=== PATIENT | male | born 1985 | race Asian ===

== ENCOUNTER 2021-11-12 16:23 | Emergency (ER) | payer OTHER ==
[~2021-11-12] VITALS: Ht 170.2 cm; Wt 62.6 kg
[2021-11-12 17:12] LABS: PLATELET COUNT 220 K/uL (142-355)
[2021-11-12 17:15] LABS: POTASSIUM 3.5 mmol/L (3.6-5.2)
[2021-11-12 18:00] VITALS: BP 168/104; TEMP 97.3
== END 2021-11-12 18:00 | disposition home or self-care (01) ==
LOC: ED 16:23
PROVIDERS: Emergency Medicine
DX: I10 Essential (primary) hypertension (principal); Z91.14 Patient's other noncompliance with medication regimen; R51.9 Headache, unspecified; I51.7 Cardiomegaly
CPT/HCPCS: 36415; 80053; 80307; 84484; 85027; 93005; 96374; 99284; J3490

== ENCOUNTER 2022-04-21 13:08 | Emergency (ER) | payer OTHER ==
[~2022-04-21] VITALS: Ht 170.2 cm; Wt 65.8 kg
[2022-04-21 13:10] VITALS: TEMP 98
[2022-04-21 14:10] VITALS: BP 163/108
== END 2022-04-21 14:29 | disposition home or self-care (01) ==
LOC: ED 13:08
DX: I10 Essential (primary) hypertension (principal); Z91.14 Patient's other noncompliance with medication regimen; F17.210 Nicotine dependence, cigarettes, uncomplicated
CPT/HCPCS: 93005; 99282

== ENCOUNTER 2022-12-06 11:43 | Emergency (ER) | payer OTHER ==
[~2022-12-06] VITALS: Ht 170.2 cm; Wt 96.2 kg
[2022-12-06 12:37] LABS: PLATELET COUNT 258 K/uL (142-355); POTASSIUM 3.6 mmol/L (3.6-5.2)
[2022-12-06 16:13] VITALS: BP 150/94; TEMP 97.6
== END 2022-12-06 16:13 | disposition home or self-care (01) ==
LOC: ED 11:46
PROVIDERS: Emergency Medicine Emergency Medical Services
DX: I10 Essential (primary) hypertension (principal); Z91.14 Patient's other noncompliance with medication regimen; F17.210 Nicotine dependence, cigarettes, uncomplicated
CPT/HCPCS: 80053; 83735; 84484; 85027; 85610; 93005; 96361; 96374; 99284; J0360